=== PATIENT | male | born 1980 | race Caucasian/White ===

== ENCOUNTER → 2020-11-19 | Outpatient (CLI) | payer OTHER ==
[~2020-11-19] MED LIST: FLEXERIL 10 MG10 MG PO; IBUPROFEN600 MG PO; PREDNISONE 50 M50 MG PO
== END ==
LOC: SLEEP 14:57
DX: G47.33 Obstructive sleep apnea (adult) (pediatric) (principal); R53.83 Other fatigue
CPT/HCPCS: 95811

== ENCOUNTER → 2021-05-11 | Outpatient (CLI) | payer OTHER ==
[2021-05-11 08:49] LABS: BUN/CREATININE RATIO 15 (0-10)
== END ==
LOC: LAB 07:36
PROVIDERS: Family Medicine
DX: I10 Essential (primary) hypertension (principal); E78.5 Hyperlipidemia, unspecified
CPT/HCPCS: 36415; 80053; 80061; 84443

== ENCOUNTER 2021-05-23 22:15 | Emergency (ER) | payer OTHER ==
[2021-05-23 23:42] LABS: HEMOGLOBIN 15.5 gm/dl (14.0-17.5); RED BLOOD COUNT 5.65 M/UL (4.20-5.50); WHITE BLOOD COUNT 10.1 K/UL (4.5-11.0)
[2021-05-24] LABS: BUN/CREATININE RATIO 21 (0-10)
== END 2021-05-24 01:20 | disposition home or self-care (01) ==
LOC: ER1 22:15
PROVIDERS: Physician Assistant
DX: M25.475 Effusion, left foot (principal); I10 Essential (primary) hypertension; M79.672 Pain in left foot; E11.9 Type 2 diabetes mellitus without complications
CPT/HCPCS: 80053; 85025; 85652; 86140; 99283

== ENCOUNTER → 2021-05-23 | Outpatient (CLI) | payer OTHER | LOC: RAD 12:04 | DX: M25.572 Pain in left ankle and joints of left foot (principal); M25.472 Effusion, left ankle; M79.89 Other specified soft tissue disorders | CPT/HCPCS: 73610; 73630 ==

== ENCOUNTER → 2021-05-24 | Outpatient (CLI) | payer OTHER | LOC: KOH-I 15:21 | DX: R10.9 Unspecified abdominal pain (principal) | CPT/HCPCS: 93971 ==

== ENCOUNTER → 2021-11-03 | Outpatient (CLI) | payer OTHER ==
[2021-11-03 09:41] LABS: HEMOGLOBIN 14.7 gm/dl (14.0-17.5); RED BLOOD COUNT 5.47 M/UL (4.20-5.50); WHITE BLOOD COUNT 7.2 K/UL (4.5-11.0)
[2021-11-03 10:06] LABS: BUN/CREATININE RATIO 17 (0-10)
[2021-11-05 11:16] LABS: CREATININE, URINE 103.5 mg/dL (Not Estab.)
== END ==
LOC: LAB 09:04
PROVIDERS: Family Medicine
DX: E11.9 Type 2 diabetes mellitus without complications (principal); I10 Essential (primary) hypertension; E78.5 Hyperlipidemia, unspecified
CPT/HCPCS: 36415; 80053; 80061; 82043; 82570; 83036; 85027

== ENCOUNTER 2022-03-03 11:58 | Emergency (ER) | payer OTHER ==
[2022-03-03] MEDS ORDERED: IBUPROFEN800 MG PO (12:43)
[2022-03-03] MEDS ORDERED: CIPRODEX OTIC7.5 ML EYEBOTH (12:43)
[2022-03-03] MEDS ORDERED: AMOXICILLIN500 MG PO (12:43)
== END 2022-03-03 13:08 | disposition home or self-care (01) ==
LOC: ER1 11:58
DX: H66.91 Otitis media, unspecified, right ear (principal); H60.91 Unspecified otitis externa, right ear; I10 Essential (primary) hypertension
CPT/HCPCS: 99282

== ENCOUNTER 2022-03-05 06:33 | Emergency (ER) | payer OTHER ==
[~2022-03-05 06:33] MED LIST changes: +AMOXICILLIN500 MG PO; +CIPRODEX OTIC7.5 ML EYEBOTH; +IBUPROFEN800 MG PO
[2022-03-05 07:59] LABS: HEMOGLOBIN 15.2 gm/dl (14.0-17.5); RED BLOOD COUNT 5.61 M/UL (4.20-5.50); WHITE BLOOD COUNT 16.7 K/UL (4.5-11.0)
[2022-03-05 08:36] LABS: BUN/CREATININE RATIO 19 (0-10)
== END 2022-03-05 12:30 | disposition home or self-care (01) ==
LOC: ER1 06:33
PROVIDERS: Physician Assistant
DX: H60.91 Unspecified otitis externa, right ear (principal); H70.91 Unspecified mastoiditis, right ear; H66.91 Otitis media, unspecified, right ear; E11.9 Type 2 diabetes mellitus without complications; I10 Essential (primary) hypertension
CPT/HCPCS: 70486; 80053; 83605; 85025; 87040; 96374; 96375; 99283; J0696; J1885